=== PATIENT | female | born 1975 | race Caucasian/White ===

== ENCOUNTER → 2016-11-11 | Outpatient (CLI) | payer BC ==
--- NOTE | 2016-11-11 11:52 | WWHP ---
DATE OF SERVICE: 11/11/2016 CHIEF COMPLAINT: The patient is here for her routine gynecologic exam. HPI: This is a 41-year-old G2, P2 with an LMP of 10/21/16. She is status post tubal ligation. She states her periods are regular. She has noticed a slight vaginal discharge, which seems to be just before her period. She thinks she may have noticed it at other times as well. She denies itching or odor. PAST MEDICAL HISTORY: Chronic back pain. MEDICATIONS: Tramadol one p.o. b.i.d. ALLERGIES: No known drug allergies. PAST SURGICAL HISTORY: Tubal ligation in 1998, tonsillectomy 2000, laparoscopic cholecystectomy in 2015. 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 SOCIAL HISTORY: She denies tobacco and drug use and has 0 to 2 alcoholic drinks per week. She is currently not seeing anybody at this time and is not sexually active. She has had 2 sexual partners over the past 2 years. 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 FAMILY HISTORY: Unchanged from the 2014 H&P. REVIEW OF SYSTEMS: She has gained about 5 pounds over the last 2 years. She denies respiratory, cardiac, or GI problems. PHYSICAL EXAM: Blood pressure 109/60. Height 5 feet 7 inches. Weight 212 pounds. Temperature 98.0, pulse 77. This is a well-developed, well-nourished white female who is alert and oriented x3 in no acute distress. HEENT is within normal limits. NECK: Supple without mass or thyromegaly. CHEST AND LUNGS: Clear to auscultation. HEART: Regular rate and rhythm. Breasts are without mass or discharge. There is a benign appearing 6mm mole on the upper aspect of the left breast. Axillary exam is negative for adenopathy. BACK: Negative for CVA tenderness. ABDOMEN: Soft, nontender, without palpable masses. PELVIC EXAM: Normal external genitalia. Cervix and vagina appear normal. There is no unusual discharge. The uterus is midposition, nongravid size and nontender. There are no palpable adnexal masses or tenderness. There is no cervical motion tenderness. The rectal exam was refused by the patient. EXTREMITIES: Nontender. IMPRESSION: 1. A 41-year-old female, status post tubal ligation with normal gynecologic exam. 2. Intermittent vaginal discharge noticed by the patient, which has been mostly premenstrual. There are no significant physical findings at this time and no evidence of vaginitis on exam. PLAN: 1. Pap smear was performed. 2. Self breast examination was discussed. 3. Mammogram will be done today. 4. GC and Chlamydia screening from the cervix was obtained. 5. STD prevention was discussed including the importance of limiting sexual partners and use of condoms for STD prevention. 6. She will return in one year. GABE
--- NOTE | 2016-11-16 11:06 | MM ---
Reason for exam: screening (asymptomatic). Last mammogram was performed 2 years and 5 months ago. History: Family history of breast cancer in maternal aunt at age 60 and breast cancer in maternal cousin at age 40. Took hormonal contraceptives for 2 months. Physical Findings: A clinical breast exam by your physician is recommended on an annual basis and results should be correlated with mammographic findings. MG Screening Mammo w CAD Bilateral CC and MLO view(s) were taken. Prior study comparison: June 20, 2014, bilateral MG screening mammo w CAD. The breast tissue is heterogeneously dense. This may lower the sensitivity of mammography. There is no discrete abnormality. No significant changes when compared with prior studies. ASSESSMENT: Negative, BI-RAD 1 RECOMMENDATION: Routine screening mammogram of both breasts in 1 year.
--- NOTE | 2016-11-25 09:48 | WWPLE ---
November 24, 2016 DENO BURNS MD RE: Lynda Katie Kylah Dear Dr. Burns. I had the pleasure of seeing your patient Katie Howell in the office on 11/11/16. As you know she is a 41-year-old female who presented to me for her routine gynecologic exam. The gynecologic exam was unremarkable. Pap smear, mammogram and GC and Chlamydia screening were all negative. Thank you for allowing me to participate in the care of your patient. Please do not hesitate to call if you have any questions. Sincerely, NEELAM NATIOND
== END | disposition home or self-care (01) ==
LOC: WWCWWP 10:34
PROVIDERS: ATTEND Obstetrics & Gynecology
DX: Z12.31 Encounter for screening mammogram for malignant neoplasm of breast (principal)
CPT/HCPCS: 87591; 87491; G0202

== ENCOUNTER 2017-08-28 17:51 | Emergency (ER) | payer BC ==
[2017-08-28 17:55] VITALS: TEMP 98.1
[2017-08-28] MEDS ORDERED: KETOROLAC 60 MG/2 ML VIAL IM STA (18:38)
--- NOTE | 2017-08-28 18:47 | ED ---
General Adult HPI - General Chief complaint: Abdominal Pain Stated complaint: Abdominal pain Time Seen by Provider: 08/28/17 18:00 Source: patient, RN notes reviewed Mode of arrival: ambulatory Limitations: no limitations - History of Present Illness Initial comments: This is a 41-year-old female who presents emergency Department complaining of posterior leg pain bilaterally. Patient states started earlier today and when she sits up it's worse when she walks she doesn't have it all. Patient states she does have some chronic lower back problems. Patient denies any injury patient denies any exercise patient denies doing anything differently. Patient states she got up this morning was very stiff felt like he was pulling. Patient states she does have frequency of urination but she has not had any dysuria or hematuria. Patient denies any back pain. Patient denies any abdominal pain patient denies nausea vomiting diarrhea. Patient states the pain starts in her hips radiates down to her knees - Related Data Home Medications Medication Instructions Recorded Confirmed Acetaminophen-Codeine 300-30mg 1 tab PO ONCE 08/28/17 08/28/17 [Tylenol #3] Dextroamphetamine/Amphetamine 20 mg PO TID 08/28/17 08/28/17 [Adderall] Ibuprofen [Motrin] 400 mg PO Q6HR PRN 08/28/17 08/28/17 traMADol HCL [Ultram] 100 mg PO BID PRN 08/28/17 08/28/17 Allergies Allergy/AdvReac Type Severity Reaction Status Date / Time No Known Allergies Allergy Verified 08/28/17 18:49 Review of Systems ROS Statement: Those systems with pertinent positive or pertinent negative responses have been documented in the HPI. ROS Other: All systems not noted in ROS Statement are negative. Past Medical History Additional Past Medical History / Comment(s): chronic back pain History of Any Multi-Drug Resistant Organisms: None Reported Past Surgical History: Cholecystectomy, Tonsillectomy, Tubal Ligation Past Psychological History: ADD/ADHD Smoking Status: Never smoker Past Alcohol Use History: None Reported Past Drug Use History: None Reported General Exam - General Exam Comments Initial Comments: GENERAL: Patient is well-developed and well-nourished. Patient is nontoxic and well- hydrated and is in mild distress. ENT: Neck is soft and supple. No significant lymphadenopathy is noted. Oropharynx is clear. Moist mucous membranes. Neck has full range of motion without eliciting any pain. EYES: The sclera were anicteric and conjunctiva were pink and moist. Extraocular movements were intact and pupils were equal round and reactive to light. Eyelids were unremarkable. PULMONARY: Unlabored respirations. Good breath sounds bilaterally. No audible rales rhonchi or wheezing was noted. CARDIOVASCULAR: There is a regular rate and rhythm without any murmurs gallops or rubs. ABDOMEN: Soft and nontender with normal bowel sounds. No palpable organomegaly was noted. There is no palpable pulsatile mass. SKIN: Skin is clear with no lesions or rashes and otherwise unremarkable. NEUROLOGIC: Patient is alert and oriented x3. Cranial nerves II through XII are grossly intact. Motor and sensory are also intact. Normal speech, volume and content. Symmetrical smile. Straight leg test is negative bilaterally. Her knee exam exam is normal MUSCULOSKELETAL: Normal extremities with adequate strength and full range of motion. LYMPHATICS: No significant lymphadenopathy is noted PSYCHIATRIC: Normal psychiatric evaluation. Limitations: no limitations Course Vital Signs 08/28/17 08/28/17 17:53 19:09 Temperature 98.1 F Pulse Rate 90 69 Respiratory 20 18 Rate Blood Pressure 131/73 126/55 O2 Sat by Pulse 100 97 Oximetry Medical Decision Making - Medical Decision Making Lumbosacral spine x-ray looks normal. Patient's pain was completely gone after the Toradol shot. - Lab Data Lab Results 08/28/17 08/28/17 Range/Units 18:35 18:35 Urine Color Yellow Urine Appearance Cloudy H (Clear) Urine pH 6.0 (5.0-8.0) Ur Specific [place] 1.017 (1.001-1.035) Urine Protein Negative (Negative) Urine Glucose (UA) Negative (Negative) Urine Ketones Negative (Negative) Urine Blood Negative (Negative) Urine Nitrite Negative (Negative) Urine Bilirubin Negative (Negative) Urine Urobilinogen <2.0 (<2.0) mg/dL Ur Leukocyte Esterase Negative (Negative) Urine RBC 2 (0-5) /hpf Urine WBC 2 (0-5) /hpf Ur Squamous Epith Cells 12 H (0-4) /hpf Amorphous Sediment Few H (None) /hpf Urine Bacteria Rare H (None) /hpf Hyaline Casts 1 (0-2) /lpf Urine Mucus Occasional H (None) /hpf Urine HCG, Qual Not Detected (Not Detectd) Disposition Clinical Impression: Hamstring strain Disposition: HOME SELF-CARE Condition: Good Instructions: Muscle Strain (ED) Additional Instructions: Patient should take Motrin 600 mg every 6 hours Referrals: Oly Burns MD [Primary Care Provider] - 1-2 days Time of Disposition: 20:21
[2017-08-28 19:00] LABS: Amorphous Sediment,Urine Few /hpf; Appearance,Urine Cloudy (Clear); Bacteria,Urine Rare /hpf; Bilirubin,Urine Negative (Negative); Blood,Urine Negative (Negative); Color,Urine Yellow; Glucose,Urine (UA) Negative (Negative); Hyaline Casts,Urine 1 /lpf (0-2); Ketones,Urine Negative (Negative); Leukocyte Esterase,Urine Negative (Negative); Mucus,Urine Occasional /hpf; Nitrite,Urine Negative (Negative); Protein,Urine Negative (Negative); RBC,Urine 2 /hpf (0-5); Specific Gravity,Urine 1.017 (1.001-1.035); Squamous Epithelial Cell,Urine 12 /hpf (0-4); Urobilinogen,Urine <2.0 mg/dL (<2.0); WBC,Urine 2 /hpf (0-5)
--- NOTE | 2017-08-28 19:38 | XR ---
EXAMINATION TYPE: XR lumbar spine 2 or 3V DATE OF EXAM: 08/28/2017 CLINICAL HISTORY: Back pain for 2 days. TECHNIQUE: Frontal, lateral, and oblique images of the lumbar spine are obtained. COMPARISON: None FINDINGS: There are 6 nonrib-bearing lumbar-type vertebral bodies. Mild endplate spurring is noted an teriorly. The lumbar spine shows satisfactory alignment without evidence of acute fracture or disloca tion. Vertebral body heights and disk space heights are within normal limits. The oblique images ap pear within normal limits. The overlying soft tissue appears unremarkable. IMPRESSION: No acute fracture or dislocation is seen in the lumbar spine.
[2017-08-28 20:28] VITALS: BP 118/76; PULSE 74; RESP 17
== END 2017-08-28 20:28 | disposition home or self-care (01) ==
LOC: EC 17:51
DX: S76.312A Strain of muscle, fascia and tendon of the posterior muscle group at thigh level, left thigh, initial encounter (principal); S76.311A Strain of muscle, fascia and tendon of the posterior muscle group at thigh level, right thigh, initial encounter; M54.5 Low back pain; G89.29 Other chronic pain; R35.0 Frequency of micturition; F90.9 Attention-deficit hyperactivity disorder, unspecified type; Z90.49 Acquired absence of other specified parts of digestive tract; Z98.51 Tubal ligation status; Z79.891 Long term (current) use of opiate analgesic; Z79.899 Other long term (current) drug therapy
CPT/HCPCS: 81001; 81025; 72100; 99284; 96372; J1885

== ENCOUNTER 2019-08-06 09:08 | Emergency (ER) | payer BC ==
[2019-08-06 09:28] VITALS: BP 136/75; PULSE 85; RESP 18; TEMP 97.9
[2019-08-06] MEDS ORDERED: FAMOTIDINE 20 MG TAB PO STA (09:59)
[2019-08-06] MEDS ORDERED: diphenhydrAMINE 50 MG CAP PO STA (09:59)
[2019-08-06] MEDS ORDERED: predniSONE 20 MG TAB PO STA (09:59)
--- NOTE | 2019-08-06 10:03 | ED ---
Allergic Reaction HPI - General Chief complaint: Allergic Reaction Stated complaint: Allergic reaction Time Seen by Provider: 08/06/19 09:35 Source: patient, RN notes reviewed Mode of arrival: ambulatory Limitations: no limitations - History of Present Illness Initial Comments: This a 43-year-old female presents emergency from chief complaint ALLERGIC r eaction. Patient states she's had on-and-off urticaria since July 18. Patient was treated by urgent care with steroids she states last few days she's been well with states that she had work again this morning nor slight rash, some facial swelling which she took 2 Claritin symptoms are improving she's noted to the swelling no difficulty breathing. Symptoms started several hours ago. Patient states that initially about is from a new any motion but states that she has not used in several weeks and she still have recurrent symptoms. She states her PCP told her that she could've symptoms for 6 weeks. Patient denies any new prescription medications known drug ALLERGIES. She has an appointment tomorrow for ALLERGY testing. - Related Data Home Medications Medication Instructions Recorded Confirmed Acetaminophen-Codeine 300-30mg 1 tab PO ONCE 08/28/17 08/28/17 [Tylenol #3] Dextroamphetamine/Amphetamine 20 mg PO TID 08/28/17 08/28/17 [Adderall] Ibuprofen [Motrin] 400 mg PO Q6HR PRN 08/28/17 08/28/17 traMADol HCL [Ultram] 100 mg PO BID PRN 08/28/17 08/28/17 Allergies Allergy/AdvReac Type Severity Reaction Status Date / Time No Known Allergies Allergy Verified 08/06/19 09:28 Review of Systems ROS Statement: Those systems with pertinent positive or pertinent negative responses have been documented in the HPI. ROS Other: All systems not noted in ROS Statement are negative. Past Medical History Additional Past Medical History / Comment(s): chronic back pain History of Any Multi-Drug Resistant Organisms: None Reported Past Surgical History: Cholecystectomy, Tonsillectomy, Tubal Ligation Past Psychological History: ADD/ADHD Smoking Status: Never smoker Past Alcohol Use History: None Reported Past Drug Use History: None Reported General Exam Limitations: no limitations General appearance: alert, in no apparent distress Head exam: Present: atraumatic, normocephalic, normal inspection Eye exam: Present: normal appearance, PERRL, EOMI. Absent: scleral icterus, conjunctival injection, periorbital swelling ENT exam: Present: normal oropharynx, mucous membranes moist, TM's normal bilaterally. Absent: normal exam (Mild swelling noted) Neck exam: Present: normal inspection, full ROM. Absent: tenderness, meningismus, lymphadenopathy Respiratory exam: Present: normal lung sounds bilaterally. Absent: respiratory distress, wheezes, rales, rhonchi, stridor Cardiovascular Exam: Present: regular rate, normal rhythm, normal heart sounds. Absent: systolic murmur, diastolic murmur, rubs, gallop, clicks Neurological exam: Present: alert, oriented X3, CN II-XII intact Skin exam: Present: warm, dry, intact, normal color. Absent: rash Course Vital Signs 08/06/19 09:26 Temperature 97.9 F Pulse Rate 85 Respiratory 18 Rate Blood Pressure 136/75 O2 Sat by Pulse 99 Oximetry Medical Decision Making - Medical Decision Making Patient's had improvement prior arrival after Claritin. Patient will be discharged after oral Benadryl Pepcid and prednisone. She has an appointment tomorrow with dermatology for ALLERGY testing. Disposition Clinical Impression: Chronic urticaria, Allergic reaction Disposition: HOME SELF-CARE Condition: Stable Instructions (If sedation given, give patient instructions): Urticaria (ED) Additional Instructions: Please return to the Emergency Department if symptoms worsen or any other concerns. Is patient prescribed a controlled substance at d/c from ED?: No Referrals: Oly Burns MD [Primary Care Provider] - 1-2 days Time of Disposition: 10:03
== END 2019-08-06 10:12 | disposition home or self-care (01) ==
LOC: EC 09:08
DX: L50.0 Allergic urticaria (principal); G89.29 Other chronic pain; F90.9 Attention-deficit hyperactivity disorder, unspecified type; Z79.891 Long term (current) use of opiate analgesic; Z79.899 Other long term (current) drug therapy
CPT/HCPCS: 99283; J7512

== ENCOUNTER → 2019-11-16 | Outpatient (CLI) | payer BC ==
[2019-11-16 11:43] LABS: Basophils % (A) 0 %; Eosinophils # (A) 0.1 k/uL (0-0.7); Eosinophils % (A) 0 %; HCT 41.6 % (34.0-46.0); HGB 12.6 gm/dL (11.4-16.0); Hypochromasia Moderate; Lymphocytes # (A) 2.5 k/uL (1.0-4.8); Lymphocytes % (A) 12 %; MCH 24.3 pg (25.0-35.0); MCHC 30.3 g/dL (31.0-37.0); MCV 80.4 fL (80.0-100.0); Mean Platelet Volume 6.6; Monocytes # (A) 0.6 k/uL (0-1.0); Monocytes % (A) 3 %; Neutrophils # (A) 17.9 k/uL (1.3-7.7); Neutrophils % (A) 84 %; Platelet Count 387 k/uL (150-450); RBC 5.17 m/uL (3.80-5.40); RDW 13.8 % (11.5-15.5); WBC 21.3 k/uL (3.8-10.6)
[2019-11-17 11:57] LABS: Alt. alternata IgE Class CLASS 0; Alternaria alternata IgE <0.10 kU/L (<0.10); Asperg. fumagatus IgE <0.10 kU/L (<0.10); Asperg. fumagatus IgE Class CLASS 0; Bermuda Grass IgE <0.10 kU/L (<0.10); Birch(Com.Silvr) IgE <0.10 kU/L (<0.10); Birch(Com.Silvr) IgE Class CLASS 0; Cat Epith & Dander IgE <0.10 kU/L (<0.10); Cat Epith & Dander IgE Class CLASS 0; Clad herbarum IgE <0.10 kU/L (<0.10); Clad herbarum IgE Class CLASS 0; Cockroach IgE <0.10 kU/L (<0.10); Cottonwood IgE <0.10 kU/L (<0.10); Cow's Milk IgE Class CLASS 0; Dermato. Pteronyssinus Class CLASS 0; Dermato. Pteronyssinus IgE <0.10 kU/L (<0.10); Dermato. farinae IgE <0.10 kU/L (<0.10); Dermato. farinae IgE Class CLASS 0; Dog Dander IgE <0.10 kU/L (<0.10); Egg White IgE <0.10 kU/L (<0.10); Elm IgE <0.10 kU/L (<0.10); IgE (Allergen) <2.0 IU/mL (<114.0); Maple (Box Elder) IgE <0.10 kU/L (<0.10); Maple (Box Elder) IgE Class CLASS 0; Mountain Cedar IgE <0.10 kU/L (<0.10); Mountain Cedar IgE Class CLASS 0; Mouse Urine IgE Class CLASS 0; Mouse Urine Proteins,IgE <0.10 kU/L (<0.10); Nettle IgE <0.10 kU/L (<0.10); Nettle IgE Class CLASS 0; Oak IgE <0.10 kU/L (<0.10); Peanut IgE <0.10 kU/L (<0.10); Penicillium chrysogenum IgE <0.10 kU/L (<0.10); Penicillium chrysogenum IgE Cl CLASS 0; Potato IgE <0.10 kU/L (<0.10); Potato IgE Class CLASS 0; Rough Marshelder IgE <0.10 kU/L (<0.10); Rough Marshelder IgE Class CLASS 0; Soybean IgE <0.10 kU/L (<0.10); Timothy Grass IgE <0.10 kU/L (<0.10); Timothy Grass IgE Class CLASS 0; White Ash IgE Class CLASS 0
== END | disposition home or self-care (01) ==
LOC: LABWHC1 11:00
PROVIDERS: ATTEND Otolaryngology
DX: T78.3XXA Angioneurotic edema, initial encounter (principal)
CPT/HCPCS: 36415; 82785; 85025; 86003

== ENCOUNTER 2019-11-18 11:23 | Emergency (ER) | payer BC ==
[2019-11-18 11:29] VITALS: RESP 18; TEMP 98.5
--- NOTE | 2019-11-18 12:12 | ED ---
General Adult HPI - General Chief complaint: Allergic Reaction Stated complaint: hives Time Seen by Provider: 11/18/19 11:35 Source: patient, RN notes reviewed Mode of arrival: ambulatory Limitations: no limitations - History of Present Illness Initial comments: 44-year-old female presents to the emergency department for a chief complaint of rash and swelling. Patient states she has had hives and random swelling for 5 months now. States that she has been on 3 different doses of steroids and these all seem to help. Since that she has been taking Benadryl as well. Patient states that yesterday her doctor ordered blood work on her and was found to have an elevated white blood cell count of 21. She did just finish steroids 2 days ago. Patient states she had some swelling in her eyes today which she has had several times before so called her doctor and he said to go to the emergency department given her leukocytosis. Patient is not having any swelling of the lips tongue or throat. She is not having any shortness of breath or chest pain. No difficulty swallowing or breathing. She states she has an appointment with an rn clinician next week. She states that she is only here today because her doctor told her to come. Patient has no other complaints at this time including shortness of breath, chest pain, abdominal pain, nausea or vomiting, headache, or visual changes. - Related Data Home Medications Medication Instructions Recorded Confirmed Dextroamphetamine/Amphetamine 10 mg PO BID 08/28/17 11/18/19 [Adderall] Cetirizine HCl [Zyrtec] 10 mg PO DAILY 11/18/19 11/18/19 Levothyroxine Sodium [Synthroid] 25 mcg PO DAILY 11/18/19 11/18/19 diphenhydrAMINE HCL [Benadryl] 25 - 50 mg PO Q4H PRN 11/18/19 11/18/19 Previous Rx's Medication Instructions Recorded Famotidine [Pepcid] 20 mg PO BID #30 tablet 11/18/19 Triamcinolone 0.1% Cream [Kenalog 1 applic TOPICAL TID PRN #30 g 11/18/19 0.1% Cream] predniSONE 50 mg PO DAILY #5 tablet 11/18/19 Allergies Allergy/AdvReac Type Severity Reaction Status Date / Time No Known Allergies Allergy Verified 11/18/19 11:59 Review of Systems ROS Statement: Those systems with pertinent positive or pertinent negative responses have been documented in the HPI. ROS Other: All systems not noted in ROS Statement are negative. Past Medical History Additional Past Medical History / Comment(s): chronic back pain History of Any Multi-Drug Resistant Organisms: None Reported Past Surgical History: Cholecystectomy, Tonsillectomy, Tubal Ligation Past Psychological History: ADD/ADHD Smoking Status: Never smoker Past Alcohol Use History: None Reported Past Drug Use History: None Reported General Exam Limitations: no limitations General appearance: alert, in no apparent distress Head exam: Present: atraumatic, normocephalic, normal inspection Eye exam: Present: normal appearance, PERRL, EOMI. Absent: scleral icterus, conjunctival injection, periorbital swelling ENT exam: Present: normal exam, mucous membranes moist. Absent: normal oropharynx (No swelling of the lips tongue or throat. No evidence of angioedema.), TM's normal bilaterally, normal external ear exam Neck exam: Present: normal inspection, full ROM. Absent: tenderness, meningismu s, lymphadenopathy Respiratory exam: Present: normal lung sounds bilaterally. Absent: respiratory distress, wheezes, rales, rhonchi, stridor Cardiovascular Exam: Present: regular rate, normal rhythm, normal heart sounds. Absent: systolic murmur, diastolic murmur, rubs, gallop, clicks GI/Abdominal exam: Present: soft, normal bowel sounds. Absent: distended, tenderness, guarding, rebound, rigid Skin exam: Present: warm, dry, intact, normal color, urticaria (Patient has mildly erythematous urticaria on arms and legs as well as abdomen and back.) Course Vital Signs 11/18/19 11/18/19 11:27 12:16 Temperature 98.5 F Pulse Rate 102 H 101 H Respiratory 18 18 Rate Blood Pressure 135/100 172/86 O2 Sat by Pulse 99 98 Oximetry Medical Decision Making - Medical Decision Making Patient was technically sent into the emergency department for a leukocytosis however just finished steroids 2 days ago. This is likely reactive. I did recommend that she does need to repeat this lab value when she is off steroids and follow up with her doctor to see if he has any other recommendations for her. Patient does have some mild swelling of the eyelids but otherwise no evidence of angioedema of the lips tongue or throat. She does have generalized urticaria that has been consistent since July. She does not have any swelling of the lips tongue or throat. No shortness of breath or chest pain. Patient was started on a five-day course of steroids and Pepcid to help with her symptoms until she sees her rn clinician next week as steroids helped in the past. She will continue to take Benadryl. She has an appointment with her rn clinician next week.I discussed this case with attending Dr. Anand who agrees with this assessment and treatment plan. Disposition Clinical Impression: Urticaria Disposition: HOME SELF-CARE Condition: Fair Instructions (If sedation given, give patient instructions): General Allergic Reaction (ED) Additional Instructions: Please take medications as directed. Follow-up with your rn clinician as soon as possible. Follow up with primary care so they can repeat your white blood cell count when you are off steroids to make sure it improves or other appropriate management. If you have any swelling of your tongue or throat or difficulty breathing you need to return immediately to the emergency department. Prescriptions: Triamcinolone 0.1% Cream [Kenalog 0.1% Cream] 1 applic TOPICAL TID PRN #30 g PRN Reason: Rash Famotidine [Pepcid] 20 mg PO BID #30 tablet predniSONE 50 mg PO DAILY #5 tablet Is patient prescribed a controlled substance at d/c from ED?: No Referrals: Oly Burns MD [Primary Care Provider] - 1-2 days Time of Disposition: 12:06
[2019-11-18 12:24] VITALS: BP 172/86; PULSE 101
== END 2019-11-18 12:16 | disposition home or self-care (01) ==
LOC: EC 11:23
DX: L50.9 Urticaria, unspecified (principal); H57.89 Other specified disorders of eye and adnexa; Z79.890 Hormone replacement therapy; Z79.899 Other long term (current) drug therapy
CPT/HCPCS: 99283

== ENCOUNTER → 2020-12-06 | Outpatient (CLI) | payer BC | END | disposition home or self-care (01) | LOC: LABWHC1 17:02 | PROVIDERS: ATTEND Emergency Medicine | DX: Z20.822 Contact with and (suspected) exposure to COVID-19 (principal) | CPT/HCPCS: U0003; C9803; U0005 ==

== ENCOUNTER → 2020-12-24 | Outpatient (CLI) | payer BC | END | disposition home or self-care (01) | LOC: LABWHC1 16:38 | PROVIDERS: ATTEND Emergency Medicine | DX: Z20.822 Contact with and (suspected) exposure to COVID-19 (principal) | CPT/HCPCS: U0003; C9803 ==

== ENCOUNTER → 2021-10-07 | Outpatient (CLI) | payer BC ==
[2021-10-07 15:26] VITALS: BP 114/85; PULSE 88; TEMP 98
--- NOTE | 2021-10-07 16:23 | P.HPBAR ---
Bariatric H&P - History & Physicial H&P Date: 10/07/21 History & Physicial: Visit/CC: initial clinic visit Patient initial contact: Initial weight: Initial weight in pounds: Height: 5 ft 8 in Initial BMI: Last weight: Current weight: 104.326 kg Current weight in pounds: 230.00 Current BMI: 34.9 [place] body weight (based on NIH guidelines): 63.503 kg Excess body weight loss: The patient is a 45 year-old F who presents for Bariatric Assessment. Patient presents interested in bariatric surgery. States she is more interested in the sleeve gastrectomy currently. Patient has a friend that went through the sleeve gastrectomy procedure in the past. Patient says she has tried a variety of different weight loss methods without success. Patient suffers from right chronic right knee pain, possible sleep apnea, rare heartburn symptoms. Patient's only other medical issue is hypothyroidism. Surgical history includes laparoscopic cholecystectomy, tubal ligation, tonsils. No tobacco use. No history of DVT or dysphagia. No prior EGD. Review of Systems The patient denies any acute changes in vision or hearing, no dysphagia or odynophagia, no chest pain or shortness of breath, no dysuria or hematuria, no headache, no runny nose, no rectal bleeding or melena, no unexplained weight loss Past Medical History Additional Past Medical History / Comment(s): chronic back pain History of Any Multi-Drug Resistant Organisms: None Reported Past Surgical History: Cholecystectomy, Tonsillectomy, Tubal Ligation Past Psychological History: ADD/ADHD Smoking Status: Never smoker Past Alcohol Use History: None Reported Past Drug Use History: None Reported Surgical - Exam Vital Signs Temp Pulse BP 98 F 88 114/85 10/07/21 15:16 10/07/21 15:16 10/07/21 15:16 Physical exam: General: Well-developed, well-nourished HEENT: Normocephalic, sclerae nonicteric Abdomen: Nontender, nondistended Extremities: No edema Neuro: Alert and oriented Bariatric Assessment & Plan (1) Obesity (BMI 30.0-34.9) Narrative/Plan: 45-year-old female with obesity. Patient has clinical history worrisome for sleep apnea. Patient's body mass index is borderline for meeting criteria for sleeve gastrectomy. This was discussed with the patient. We'll order sleep apnea study at this time given the patient's clinical history. If the patient's BMI is over 35.0 and suspected comorbidities are confirmed Will proceed with upper endoscopy as part of our preoperative workup for sleeve gastrectomy. The risks and benefits of both sleeve gastrectomy and gastric bypass reviewed in detail. Patient remains interested in sleeve gastrectomy at this time. Status: Acute Bariatric Checklist Checklist: Plan: Checklist: EGD: 1. Hiatal hernia: 2. H. Pylori: HgbA1c: Vitamin D: Smoking: Never smoker Primary care physician referral: Psychiatry clearance: Cardiology clearance: Sleep study: Diet journal: VTE risk score: VTE risk level: Rehab needs at discharge:
[2021-10-08 01:53] LABS: HCT 41.8 % (37.2-46.3); HGB 12.4 g/dL (12.0-15.0); MCH 23.5 pg (27.0-32.0); MCHC 29.7 g/dL (32.0-37.0); MCV 79.2 fL (80.0-97.0); Mean Platelet Volume 9.7 fL (9.5-12.2); NRBC Per 100 WBC 0 /100 WBCS (0.0-0.0); Platelet Count 297 X 10*3/uL (140-440); RBC 5.28 X 10*6/uL (4.10-5.20); WBC 10.03 X 10*3/uL (4.50-10.00)
[2021-10-08 03:02] LABS: Folate, Serum 10.4 ng/mL (4.40-31.00)
[2021-10-08 03:18] LABS: African American GFR (CKD) 103.2 (60.0-200.0); Albumin 4.7 g/dL (3.8-4.9); Albumin/Globulin Ratio 1.88 (1.60-3.17); Anion Gap 16.4 mmol/L (10.00-18.00); BUN/Creat Ratio 12.38 Ratio (12.00-20.00); Blood Urea Nitrogen 9.9 mg/dL (9.0-27.0); Calcium 9.2 mg/dL (8.7-10.3); Carbon Dioxide 18.6 mmol/L (20.0-27.5); Globulin 2.5 g/dL (1.6-3.3); Potassium 4.2 mmol/L (3.5-5.5); Total Bilirubin 0.4 mg/dL (0.30-1.20); Total Protein 7.2 g/dL (6.2-8.2)
[2021-10-08 09:21] VITALS: BMI 35.4
[2021-10-09 11:15] LABS: Anabasine Urine <2.0 ng/mL (<2.0)
== END ==
LOC: BARWHC3 14:55
PROVIDERS: ATTEND Surgery
DX: E66.9 Obesity, unspecified (principal); Z71.51 Drug abuse counseling and surveillance of drug abuser; K90.89 Other intestinal malabsorption; E55.9 Vitamin D deficiency, unspecified; G47.30 Sleep apnea, unspecified; Z68.34 Body mass index [BMI] 34.0-34.9, adult; E03.9 Hypothyroidism, unspecified; F90.9 Attention-deficit hyperactivity disorder, unspecified type
CPT/HCPCS: 36415; 80053; 80323; 82306; 82607; 82746; 83036; 83540; 84425; 85027; 93005; 99211

== ENCOUNTER 2021-11-04 10:45 | Day surgery (SDC) | payer BC ==
[2021-10-30 15:30] VITALS: BMI 36.2
[~2021-11-04 10:45] MED LIST: LACTATED RINGERS 1,000 ML IV SCH; LIDOCAINE 1% (10MG/ML) FOR IV START INTRADERMA PRN
[2021-11-04] MEDS ORDERED: PROPOFOL 10 MG/ML 20 ML VIAL IV ONE (11:21)
[2021-11-04] MEDS ORDERED: LIDOCAINE 1% INJ 10MG/ML (20 ML MDV) ONE (11:21)
[2021-11-04 11:24] VITALS: RESP 20; TEMP 97
--- NOTE | 2021-11-04 11:26 | P.GSHP ---
History of Present Illness H&P Date: 11/04/21 Chief Complaint: GERD 46-year-old female here today for upper endoscopy. She was recently seen in the bariatric clinic. Patient is interested in weight loss surgery. Mild reflux symptoms. Past Medical History Past Medical History: Thyroid Disorder Additional Past Medical History / Comment(s): chronic back pain History of Any Multi-Drug Resistant Organisms: None Reported Past Surgical History: Cholecystectomy, Tonsillectomy, Tubal Ligation Past Anesthesia/Blood Transfusion Reactions: No Reported Reaction Past Psychological History: No Psychological Hx Reported Smoking Status: Never smoker Past Alcohol Use History: None Reported Past Drug Use History: None Reported - Past Family History Mother Family Medical History: No Reported History Medications and Allergies Home Medications Medication Instructions Recorded Confirmed Type Levothyroxine Sodium [Synthroid] 25 mcg PO DAILY 11/18/19 10/30/21 History Cholecalciferol [Vitamin D3 (125 125 mcg PO DAILY 10/30/21 10/30/21 History Mcg = 5000 Iu)] Ferrous Sulfate [Feosol] 325 mg PO DAILY 10/30/21 10/30/21 History Multivit with Calcium,Iron,Min 1 each PO DAILY 10/30/21 10/30/21 History [Women's Multivitamin] Vitamin E 400 unit PO DAILY 10/30/21 10/30/21 History Allergies Allergy/AdvReac Type Severity Reaction Status Date / Time No Known Allergies Allergy Verified 10/30/21 15:23 Surgical - Exam Vital Signs Temp Pulse Resp BP Pulse Ox 97 F L 72 20 118/81 98 11/04/21 11:20 11/04/21 11:20 11/04/21 11:20 11/04/21 11:20 11/04/21 11:20 Physical exam: General: Well-developed, well-nourished HEENT: Normocephalic, sclerae nonicteric Abdomen: Nontender, nondistended Extremities: No edema Neuro: Alert and oriented Assessment and Plan (1) GERD (gastroesophageal reflux disease) Narrative/Plan: Will proceed with upper endoscopy. Current Visit: Yes Status: Acute Code(s): K21.9 - GASTRO-ESOPHAGEAL REFLUX DISEASE WITHOUT ESOPHAGITIS SNOMED Code(s): 750559848
--- NOTE | 2021-11-04 11:32 | P.PCN ---
Date of Procedure: 11/04/21 Procedure(s) Performed: Preoperative Dx: GERD, presurgical Postoperative Dx: Mild gastritis Procedure: EGD with Bx Anesthesia: Sedation Endoscopist: Dr. Thomas Specimens: Antrum Endoscopic Procedure: The patient was on the endoscopy table in the left decubitus position. The Olympus gastroscope was inserted into the oropharynx and passed under direct visualization to the region of the third portion of the duodenum. From that point the scope was slowly withdrawn inspecting all surfaces carefully. There were no neoplastic inflammatory or polypoid lesions throughout the duodenum. The pylorus was widely patent. The stomach was carefully inspected. There was mild gastritis present. A biopsy of the antrum took place to rule out H. pylori. Retroflexion revealed a normal hiatus. The esophagus was then carefully examined. There were no neoplastic inflammatory or polypoid lesions throughout the visualized esophagus. The patient was then taken to the recovery room in stable condition per anesthesia guidelines. Recommendations: Resume diet. Await biopsy results. Follow-up bariatric center.
[2021-11-04 12:16] VITALS: BP 128/68; PULSE 70
== END 2021-11-04 12:28 | disposition home or self-care (01) ==
LOC: ORWHC2ENDO 10:45
PROVIDERS: ATTEND Surgery
DX: K21.9 Gastro-esophageal reflux disease without esophagitis (principal); K29.50 Unspecified chronic gastritis without bleeding; E07.9 Disorder of thyroid, unspecified; G89.29 Other chronic pain; M54.9 Dorsalgia, unspecified; Z90.49 Acquired absence of other specified parts of digestive tract; Z98.51 Tubal ligation status; Z98.890 Other specified postprocedural states; Z79.890 Hormone replacement therapy; Z79.899 Other long term (current) drug therapy
CPT/HCPCS: 81025; 88305; 88342; 43239; J2001; J2704

== ENCOUNTER → 2021-12-09 | Outpatient (CLI) | payer BC ==
[2021-12-09 15:49] VITALS: BP 148/67; PULSE 86; RESP 16; TEMP 98; BMI 37.8
--- NOTE | 2021-12-09 17:43 | P.BASOAP ---
Subjective Progress Note Date: 12/09/21 Principal diagnosis: Morbid obesity Patient returns after recent EGD on 11/04. Patient had mild gastritis. Biopsies did show H. pylori. She has her consultation to discuss sleep study on . Mild reflux symptoms at times. Otherwise no change in her recent history. She has started her treatment course for H. pylori. Objective - Vital Signs Vital signs: Vital Signs Temp 98 F 12/09/21 15:46 Pulse 86 12/09/21 15:46 Resp 16 12/09/21 15:46 BP 148/67 12/09/21 15:46 Pulse Ox Intake & Output 12/08/21 12/09/21 12/09/21 18:59 06:59 18:59 Weight 111.13 kg - Exam Abdomen: Soft, nontender, nondistended Assessment/Plan (1) Obesity (BMI 30.0-34.9) Narrative/Plan: 46-year-old female remains interested in sleeve gastrectomy. We'll finish course of antibiotics for H. pylori. Surgical consent form discussed in detail. All questions answered. Will tentatively schedule repeat H. pylori breath test in 4-6 weeks and if negative will schedule sleeve gastrectomy surgery following that. Plan: Date: 12/09/21 Initial Weight: 104.326 kg Initial BMI: 35.4 Current Weight: 111.13 kg Current BMI: 37.8 Type of Surgery: Total Volume in Band: Previous Volume: Volume Removed: Volume Added: Band Size:
== END ==
LOC: BARWHC3 15:00
PROVIDERS: ATTEND Surgery
DX: E66.01 Morbid (severe) obesity due to excess calories (principal); K29.70 Gastritis, unspecified, without bleeding; B96.81 Helicobacter pylori [H. pylori] as the cause of diseases classified elsewhere; Z68.37 Body mass index [BMI] 37.0-37.9, adult
CPT/HCPCS: 99211

== ENCOUNTER → 2021-12-11 | Outpatient (CLI) | payer BC ==
--- NOTE | 2021-12-11 15:17 | CONS ---
CONSULTATION DATE OF SERVICE: 12/11/2021 This 46-year-old lady has been evaluated in Sleep Center for possible obstructive sleep apnea-hypopnea syndrome. HISTORY OF PRESENT ILLNESS/SLEEP-WAKE EVALUATION: Patient's usual sleep schedule on weekdays is from 11 p.m. to 5 a.m. and on weekends from 11 p.m. to 10 or 11 a.m. No problems with falling asleep, although she has a TV set in the bedroom. Patient usually sleeps on the side position. She snores and wakes up from sleep at least 4 times with several episodes of nocturia. Positive history of restless leg symptoms and sleeptalking. No history of hypnagogic hallucinations, sleep paralysis or cataplexy. In the morning the patient wakes up tired, has difficulties paying attention. Conway Sleepiness Scale increased to 10. Usually she does not take any naps. She drinks 1 or 2 caffeinated beverages during the day. The patient is preparing for bariatric sleeve surgery. PAST MEDICAL HISTORY: Positive for acid reflux, hypothyroidism, headaches, sinus problems, iron deficiency. PAST SURGICAL HISTORY: Tubal ligation, tonsillectomy, cholecystectomy. MEDICATIONS: 1. Amoxicillin 500 mg twice a day. 2. Omeprazole 20 mg twice a day. 3. Biaxin 500 mg twice a day. 4. Synthroid 25 mg once a day. SOCIAL HISTORY: Negative for smoking. Alcohol consumption very rarely. FAMILY HISTORY: Sinus problems, cancer, insomnia, diabetes. REVIEW OF SYSTEMS: Snoring, multiple awakenings from sleep, sleepiness during the day. No fevers. No double vision. No recent chest pain. No shortness of breath. No abdominal pain. No bleeding episodes. No blood in the urine. No seizure episodes. PHYSICAL EXAMINATION: GENERAL: Pleasant lady without distress. VITAL SIGNS: BP 121/74, HR 80, RR 16, height 5 feet 7-1/4 inches, weight 244.8 pounds, body mass index 37.9, temperature 97.2, oxygen saturation at room air 96%. HEENT: PERRLA, EOMI, evaluation of oropharynx showed tongue protrudes midline. Moderately low position of soft palate; Mallampati III to II. NECK: Supple, no JVD. Thyroid is not palpable. Neck is wide; 16-1/2 inches in circumference. LUNGS: Clear to percussion and to auscultation. Good air exchange. No wheezing or rhonchi. HEART: S1, S2 regular. No murmurs, gallops, or rubs. ABDOMEN: Slightly obese. EXTREMITIES: No clubbing or cyanosis. LABOR CUSTODIAN: Awake, alert, and oriented X3. Cranial nerves 2 to 7 intact. There is no fasciculation or atrophy. noted. No focal deficits observed. IMPRESSION: 1. Snoring, multiple awakenings from sleep, sleepiness, Conway Sleepiness Scale increased to 10, wide neck, 16-1/2 inches in circumference; obstructive sleep apnea- hypopnea syndrome. 2. Obesity. 3. Acid reflux. 4. Hypothyroidism. 5. Episodes of headaches. 6. Restless leg symptoms. 7. History of iron deficiency. 8. Status post tubal ligation. 9. Status post cholecystectomy. 10.Status post tonsillectomy. PLAN: 1. Home sleep apnea test for evaluation of patient's breathing during sleep. 2. Following plan after reviewing results of sleep study. 3. If the sleep study is positive for obstructive sleep apnea-hypopnea syndrome, treatment with CPAP for correction of respiratory abnormalities. 4. Losing weight. 5. No driving if feeling any sleepiness. Thank you very much for referring this patient for consultation. Sincerely, Moisés Whaley MD, PhD, FAASM Diplomat of [place] [employer] Sleep Medicine [employer] of [place] [employer] [facility] Treat[facility] [place] MMODL / IJN: [id number] /
== END ==
LOC: SLEEP 13:54
PROVIDERS: ATTEND Internal Medicine
DX: G47.33 Obstructive sleep apnea (adult) (pediatric) (principal); E66.9 Obesity, unspecified; K21.9 Gastro-esophageal reflux disease without esophagitis; E03.9 Hypothyroidism, unspecified; G25.81 Restless legs syndrome; Z90.49 Acquired absence of other specified parts of digestive tract; Z98.51 Tubal ligation status; Z90.09 Acquired absence of other part of head and neck; Z79.890 Hormone replacement therapy; Z68.37 Body mass index [BMI] 37.0-37.9, adult
CPT/HCPCS: 99211

== ENCOUNTER → 2021-12-22 | Outpatient (CLI) | payer BC ==
[2021-12-22 10:46] VITALS: BMI 37.7
== END | disposition home or self-care (01) ==
LOC: BARWHC3 08:50
PROVIDERS: ATTEND Surgery
DX: E66.01 Morbid (severe) obesity due to excess calories (principal); Z71.3 Dietary counseling and surveillance
CPT/HCPCS: 97804

== ENCOUNTER → 2022-02-11 | Outpatient (CLI) | payer BC ==
[2022-02-11 09:46] VITALS: BP 121/72; PULSE 77; TEMP 98.1; BMI 37.5
== END ==
LOC: BARWHC3 09:26
PROVIDERS: ATTEND Surgery
DX: Z09 Encounter for follow-up examination after completed treatment for conditions other than malignant neoplasm (principal); E66.01 Morbid (severe) obesity due to excess calories; Z68.37 Body mass index [BMI] 37.0-37.9, adult

== ENCOUNTER → 2022-02-18 | Outpatient (CLI) | payer BC, OTHER ==
[2022-02-18 11:15] VITALS: BP 101/63; PULSE 83; TEMP 98.2; BMI 37.0
== END ==
LOC: BARWHC3 11:03
PROVIDERS: ATTEND Surgery
DX: Z09 Encounter for follow-up examination after completed treatment for conditions other than malignant neoplasm (principal); K29.70 Gastritis, unspecified, without bleeding; B96.1 Klebsiella pneumoniae [K. pneumoniae] as the cause of diseases classified elsewhere
CPT/HCPCS: 83013; 99211

== ENCOUNTER → 2022-03-02 | Outpatient (CLI) | payer OTHER ==
[2022-03-02 14:24] LABS: Basophils # (A) 0.02 X 10*3/uL (0.00-0.10); Basophils % (A) 0.3 %; Eosinophils # (A) 0.06 X 10*3/uL (0.04-0.35); Eosinophils % (A) 0.8 %; HCT 43.6 % (37.2-46.3); HGB 13.3 g/dL (12.0-15.0); Immature Grans, Automated 0.4 %; Lymphocytes # (A) 1.88 X 10*3/uL (0.90-5.00); Lymphocytes % (A) 23.9 %; MCH 25.5 pg (27.0-32.0); MCHC 30.5 g/dL (32.0-37.0); MCV 83.7 fL (80.0-97.0); Mean Platelet Volume 9.7 fL (9.5-12.2); Monocytes # (A) 0.69 X 10*3/uL (0.20-1.00); Monocytes % (A) 8.8 %; NRBC Per 100 WBC 0 /100 WBCS (0.0-0.0); Neutrophils # (A) 5.18 X 10*3/uL (1.80-7.70); Neutrophils % (A) 65.8 %; Platelet Count 236 X 10*3/uL (140-440); RBC 5.21 X 10*6/uL (4.10-5.20); RDW 13.2 % (11.5-14.5); WBC 7.86 X 10*3/uL (4.50-10.00)
[2022-03-02 16:19] LABS: African American GFR (CKD) 121.2 (60.0-200.0); Albumin 4.5 g/dL (3.8-4.9); Albumin/Globulin Ratio 1.69 (1.60-3.17); Anion Gap 14.4 mmol/L (10.00-18.00); BUN/Creat Ratio 28.38 Ratio (12.00-20.00); Blood Urea Nitrogen 19.5 mg/dL (9.0-27.0); Calcium 9.4 mg/dL (8.7-10.3); Carbon Dioxide 19.3 mmol/L (20.0-27.5); Globulin 2.7 g/dL (1.6-3.3); Non-African American GFR(CKD) 104.6 (60.0-200.0); Potassium 4.2 mmol/L (3.5-5.5); Total Bilirubin 0.4 mg/dL (0.30-1.20); Total Protein 7.2 g/dL (6.2-8.2)
== END | disposition home or self-care (01) ==
LOC: LABPAT 09:35
PROVIDERS: ATTEND Surgery
DX: Z01.812 Encounter for preprocedural laboratory examination (principal)
CPT/HCPCS: 80053; 85025

== ENCOUNTER 2022-03-09 10:00 | Inpatient (IN) | payer OTHER ==
[~2022-03-09 10:00] MED LIST changes: +DEXAMETHASONE SOD PHOSPHATE 4 MG/ML 1 ML VIAL IV ONE; +ENOXAPARIN 40 MG/0.4 ML SYRINGE SQ PRN; +HYDROmorphone 0.5 MG/0.5 ML SYRINGE IVP PRN; -LACTATED RINGERS 1,000 ML IV SCH; -LIDOCAINE 1% (10MG/ML) FOR IV START INTRADERMA PRN
[2022-03-09 10:28] LABS: Glucose,Whole Blood 79 mg/dL (70-110)
[2022-03-09] MEDS: LACTATED RINGERS 1,000 ML IV SCH (10:31)
[2022-03-09] MEDS: ONDANSETRON 4 MG/2 ML VIAL IVP ONE ×2 (10:33→17:13)
--- NOTE | 2022-03-09 10:54 | P.GSHP ---
History of Present Illness H&P Date: 03/09/22 Chief Complaint: Morbid obesity 46-year-old female here today for sleeve gastrectomy. Patient was first seen for surgical weight loss in September. Patient suffers from chronic knee pain, GERD, sleep apnea. Previous history of laparoscopic cholecystectomy and tubal ligation. No tobacco use. EGD showed mild gastritis however biopsies showed H. pylori positivity. She was treated and then had urea breath test which was negative. Past Medical History Past Medical History: Thyroid Disorder Additional Past Medical History / Comment(s): hx migraines, low iron. History of Any Multi-Drug Resistant Organisms: None Reported Past Surgical History: Cholecystectomy, Tonsillectomy, Tubal Ligation Past Anesthesia/Blood Transfusion Reactions: No Reported Reaction, Motion Sickness Past Psychological History: No Psychological Hx Reported Smoking Status: Never smoker Past Alcohol Use History: None Reported Past Drug Use History: None Reported - Past Family History Mother Family Medical History: No Reported History Medications and Allergies Home Medications Medication Instructions Recorded Confirmed Type Levothyroxine Sodium [Synthroid] 25 mcg PO DAILY 11/18/19 03/05/22 History Cholecalciferol [Vitamin D3 (125 125 mcg PO DAILY 10/30/21 03/09/22 History Mcg = 5000 Iu)] Multivit with Calcium,Iron,Min 1 each PO DAILY 10/30/21 03/09/22 History [Women's Multivitamin] Iron 18 mg PO DAILY 02/11/22 03/09/22 History Allergies Allergy/AdvReac Type Severity Reaction Status Date / Time No Known Allergies Allergy Verified 03/09/22 10:21 Surgical - Exam Vital Signs Temp Pulse Resp BP Pulse Ox 97.7 F 90 18 145/72 97 03/09/22 10:26 03/09/22 10:26 03/09/22 10:26 03/09/22 10:26 03/09/22 10:26 Physical exam: General: Well-developed, well-nourished HEENT: Normocephalic, sclerae nonicteric Abdomen: Nontender, nondistended Extremities: No edema Neuro: Alert and oriented Assessment and Plan (1) Obesity (BMI 30.0-34.9) Narrative/Plan: 46 row female with obesity and associated comorbidities. We'll proceed with laparoscopic da Austyn assisted sleeve gastrectomy, possible open at this time. The risks of bleeding, infection, stenosis, stricture, leak, abscess, fistula formation, peritonitis, poor weight loss, reflux, vomiting, conversion to an open procedure, aborting sleeve gastrectomy, AR, PE, DVT, and were discussed. The patient understands and wishes to proceed. Current Visit: No Status: Acute Code(s): E66.9 - OBESITY, UNSPECIFIED SNOMED Code(s): 951214406662594
[2022-03-09] MEDS ORDERED: SUCCINYLCHOLINE CHLORIDE 200 MG/10 ML VIAL IV ONE (11:13)
[2022-03-09] MEDS ORDERED: MIDAZOLAM 2 MG/2 ML VIAL ONE (11:13)
[2022-03-09] MEDS ORDERED: GLYCOPYRROLATE 0.2 MG/ML 2 ML VIAL ONE (11:13)
[2022-03-09] MEDS ORDERED: fentaNYL (PF) 50 MCG/ML 2 ML AMP ONE (11:13)
[2022-03-09] MEDS ORDERED: HYDROmorphone (PF) 1 MG/ML ONE (11:13)
[2022-03-09] MEDS ORDERED: NEOSTIGMINE 1 MG/ML 10 ML VIAL ONE (11:13)
[2022-03-09] MEDS ORDERED: LIDOCAINE 2% INJ 20 MG/ML (2 ML VIAL) ONE (11:13)
[2022-03-09] MEDS ORDERED: PROPOFOL 10 MG/ML 20 ML VIAL IV ONE (11:13)
[2022-03-09] MEDS ORDERED: ROCURONIUM 10 MG/ML (5 ML VIAL) IV ONE (11:13)
[2022-03-09] MEDS ORDERED: BUPIVACAIN-EPI 0.25%-1:200,000 30 ML VIAL SQ ONE ×2 (11:44)
[2022-03-09] MEDS ORDERED: LACTATED RINGERS 1,000 ML IV ONE ×2 (12:31)
[2022-03-09] MEDS ORDERED: HYOSCYAMINE ORAL DROPS 1.875 MG/15 ML BOTTLE PO PRN (13:32)
[2022-03-09] MEDS ORDERED: HYDROmorphone 0.5 MG/0.5 ML SYRINGE IVP PRN (13:32)
[2022-03-09] MEDS ORDERED: diphenhydrAMINE 50 MG/ML 1 ML VIAL IVP PRN (13:32)
[2022-03-09] MEDS ORDERED: HYDROmorphone 1 MG/ML 1 ML SYRINGE IVP PRN (13:32)
[2022-03-09] MEDS ORDERED: NALOXONE 0.4 MG/ML 1 ML VIAL IV PRN (13:32)
--- NOTE | 2022-03-09 13:38 | P.OP ---
Date of Procedure: 03/09/22 Procedure(s) Performed: PREOPERATIVE DIAGNOSIS: Morbid obesity, GERD, sleep apnea POSTOPERATIVE DIAGNOSIS: Same PROCEDURE: Da Austyn assisted laparoscopic sleeve gastrectomy SURGEON: Martha EBL: Minimal ANESTHESIA: General COMPLICATIONS: None OPERATIVE PROCEDURE: Patient was placed in the operating table in the supine position. The patient was then placed under general anesthesia at that time. The abdomen was prepped and draped in the usual sterile fashion. A 5 mm optical trocar was placed in the left upper quadrant 20 cm inferior to the xiphoid process. Insufflation took place up to 15 mmHg. No adhesions were seen. A 5 mm subxiphoid incision was made and the medium Yris retractor was used to elevate the left lobe of liver anteriorly. This was held in place using the fixed arm retractor. An additional 12 mm trocar was placed in the right paramedian location and 2 additional 8 mm trochars were placed in the left upper quadrant one medial and one lateral to the initially placed optical trocar. All of these trochars were placed along the same plane. The initial 5 was then switched to an 8 mm trocar. The robot was then docked appropriately. The 8 mm camera was placed in the left paramedian trocar site down viewing. A fenestrated bipolar was placed in arm 1, arm 3 had the vessel sealer, arm 4 had the small grasper retractor. The hiatus was inspected and there was no visible hiatal hernia. At that point I moved to the distal aspect of the greater curvature the stomach. The short gastric vasculature were divided using the vessel sealer. This dissection took place distally until we were 4 cm from the pylorus. The posterior adhesions were divided as well. The dissection then took place proximally along the stomach until the posterior short gastrics were divided and the fundus of the stomach was fully mobilized. Once the stomach was fully mobilized the blunt tipped 40-Kinyarwanda bougie dilator was advanced into the stomach and advanced all the way to the prepyloric location. The patient's stomach by palpation seemed to be of average thickness. No buttressing was utilized. The stapler was then used to divide the stomach staying on the outside edge of our dilator. 3 green loads of the stapler were utilized followed by 2 blue loads followed by a single white load. The stomach was then placed in the right upper quadrant after it was fully excised. The oral gastric tube was reinserted. The stomach was insufflated with approximately 100 mL of methylene blue. No evidence of leak or obstruction was seen. A few small areas of bleeding were seen along the staple line controlled using the bipolar cautery. No further bleeding was seen. Tisseel fibrin glue was then used along the length of the staple line. The robot was then undocked. The da Austyn laparoscope was used and the stomach was removed from the 12 mm trocar site without difficulty. The fascia at the 12mm site was closed using [id number] 0 Vicryl sutures with the laparoscopic suture passer and Avel Sivakumar technique. The insufflation was evacuated. The skin at all 5 incisions were closed using 4-0 Monocryl sutures. Skin glue was then applied. DISPOSITION: Stable to recovery room
[2022-03-09] MEDS ORDERED: ONDANSETRON 4 MG/2 ML VIAL IVP ONE (14:49)
[2022-03-09] MEDS: ALBUTEROL NEBULIZED 2.5 MG/3 ML INHALATION SCH ×2 (16:12→20:37)
[2022-03-09] MEDS ORDERED: ONDANSETRON 4 MG/2 ML VIAL ONE (17:10)
[2022-03-09] MEDS: ACETAMINOPHEN IV (For NPO) 1,000 MG in EMPTY BAG 1 BAG IVPB SCH (17:13)
[2022-03-09] MEDS: SIMETHICONE 40 MG/0.6 ML DROPS 2,000 MG/30 ML BOTTLE PO PRN (18:02)
[2022-03-09] MEDS: ONDANSETRON 4 MG/2 ML VIAL IVP PRN (21:58)
[2022-03-10] MEDS: METOCLOPRAMIDE 5 MG/ML 2 ML VIAL IVP SCH ×2 (02:59→07:06)
[2022-03-10] MEDS: SIMETHICONE 40 MG/0.6 ML DROPS 2,000 MG/30 ML BOTTLE PO PRN (03:03)
[2022-03-10] MEDS: 0.9% NACL WITH KCL 20 MEQ/L 1,000 ML IV SCH ×6 (05:39→23:18)
[2022-03-10] MEDS: ACETAMINOPHEN IV (For NPO) 1,000 MG in EMPTY BAG 1 BAG IVPB SCH ×3 (06:05→11:31)
[2022-03-10] MEDS ORDERED: METOCLOPRAMIDE 5 MG/ML 2 ML VIAL IVP PRN (06:09)
[2022-03-10] MEDS: ONDANSETRON 4 MG/2 ML VIAL IVP PRN (07:45)
[2022-03-10] MEDS: PANTOPRAZOLE 40 MG/10 ML VIAL IV SCH (07:45)
[2022-03-10] MEDS: ALBUTEROL NEBULIZED 2.5 MG/3 ML INHALATION SCH ×4 (07:45→20:22)
--- NOTE | 2022-03-10 09:39 | FL ---
EXAMINATION TYPE: FL UGI DATE OF EXAM: 03/10/2022 COMPARISON: NONE HISTORY: Post bariatric surgery TECHNIQUE: A single contrast UGI study is performed. A total of 42 seconds of fluoroscopic time was utilized during procedure and 6 images obtained. FINDINGS: Small Business Director image of the abdomen shows no gross abnormality. The esophagus shows normal motility and moderate delay at the level of GE junction. After a few minut es the majority con contrast passed into the stomach. No extravasation. Small amount of free air susp ected likely postsurgical.. IMPRESSION: Moderate delay at the level the GE junction.
[2022-03-10] MEDS: LACTATED RINGERS 1,000 ML IV SCH (10:09)
[2022-03-10] MEDS: ENOXAPARIN 40 MG/0.4 ML SYRINGE SQ SCH (11:05)
[2022-03-10 11:08] LABS: Basophils # (A) 0.02 X 10*3/uL (0.00-0.10); Basophils % (A) 0.1 %; Eosinophils # (A) 0 X 10*3/uL (0.04-0.35); Eosinophils % (A) 0 %; HCT 40.5 % (37.2-46.3); HGB 12.3 g/dL (12.0-15.0); Immature Grans, Automated 0.3 %; Lymphocytes # (A) 1.93 X 10*3/uL (0.90-5.00); MCH 25.4 pg (27.0-32.0); MCHC 30.4 g/dL (32.0-37.0); MCV 83.7 fL (80.0-97.0); Mean Platelet Volume 10.3 fL (9.5-12.2); Monocytes # (A) 1.01 X 10*3/uL (0.20-1.00); Monocytes % (A) 6.8 %; NRBC Per 100 WBC 0 /100 WBCS (0.0-0.0); Neutrophils # (A) 11.83 X 10*3/uL (1.80-7.70); Neutrophils % (A) 79.8 %; Platelet Count 257 X 10*3/uL (140-440); RBC 4.84 X 10*6/uL (4.10-5.20); RDW 13.3 % (11.5-14.5); WBC 14.84 X 10*3/uL (4.50-10.00)
[2022-03-10 11:17] VITALS: BMI 35.7
[2022-03-10 11:31] LABS: Magnesium 1.8 mg/dL (1.5-2.4)
[2022-03-10 11:33] LABS: African American GFR (CKD) 120.4 (60.0-200.0); Anion Gap 14.2 mmol/L (10.00-18.00); Blood Urea Nitrogen 6.4 mg/dL (9.0-27.0); Calcium 8.5 mg/dL (8.7-10.3); Carbon Dioxide 17.8 mmol/L (20.0-27.5); Non-African American GFR(CKD) 103.9 (60.0-200.0); Phosphorus 1.8 mg/dL (2.4-5.1); Potassium 4.4 mmol/L (3.5-5.5)
[2022-03-10] MEDS ORDERED: LEVOTHYROXINE 25 MCG TAB PO SCH (12:45)
[2022-03-10] MEDS: LEVOTHYROXINE 25 MCG TAB PO SCH (14:34)
--- NOTE | 2022-03-10 14:57 | P.PN ---
Subjective Progress Note Date: 03/10/22 Principal diagnosis: Morbid obesity The patient was nauseated last night. Pain has been well-controlled. Doing better this morning. Upper GI showed moderate delay at the proximal sleeve. No evidence of leak noted. No tachycardia. She is afebrile. White blood cell count elevated. Hemoglobin stable. Objective - Vital Signs Vital signs: Vital Signs Temp 98.0 F 03/10/22 08:00 Pulse 81 03/10/22 08:00 Resp 16 03/10/22 08:00 BP 121/77 03/10/22 08:00 Pulse Ox 94 L 03/10/22 08:00 FiO2 Intake & Output 03/09/22 03/10/22 03/10/22 18:59 06:59 18:59 Intake Total 1750 Output Total 10 700 Balance 1740 -700 Weight 103.6 kg 103.6 kg Intake: IV 1750 Output: Urine 700 Estimated Blood Loss 10 Other: Voiding Method Toilet Toilet # Voids 0 - Exam Abdomen: Soft, nondistended, mild incisional tenderness increased in the right side, no ecchymosis, incisions clean and dry - Labs CBC & Chem 7: 03/10/22 06:44 03/10/22 06:44 Labs: Abnormal Lab Results - Last 24 Hours (Table) 03/10/22 03/10/22 Range/Units 06:44 06:44 WBC 14.84 H (4.50-10.00) X 10*3/uL MCH 25.4 L (27.0-32.0) pg MCHC 30.4 L (32.0-37.0) g/dL Immature Gran # 0.05 H (0.00-0.04) X 10*3/uL Neutrophils # 11.83 H (1.80-7.70) X 10*3/uL Monocytes # 1.01 H (0.20-1.00) X 10*3/uL Eosinophils # 0 L (0.04-0.35) X 10*3/uL Carbon Dioxide 17.8 L (20.0-27.5) mmol/L BUN 6.4 L (9.0-27.0) mg/dL Calcium 8.5 L (8.7-10.3) mg/dL Phosphorus 1.8 L (2.4-5.1) mg/dL Assessment and Plan (1) Obesity (BMI 30.0-34.9) Narrative/Plan: Overall patient doing fairly well. Continue antiacids and anti-emetics. Begin bariatric clear liquids. Recheck labs tomorrow. Ambulate. Possible discharge tomorrow. Current Visit: No Status: Acute Code(s): E66.9 - OBESITY, UNSPECIFIED SNOMED Code(s): 235022432922358
[2022-03-10] MEDS: KETOROLAC 15 MG/ML 1 ML VIAL IVP SCH ×2 (15:07→20:21)
--- NOTE | 2022-03-10 18:07 | CONS ---
CONSULTATION DATE OF SERVICE: 03/10/2022 REASON FOR CONSULTATION: Advice regarding hypothyroidism and other multiple medical issues, requested by Surgery. HISTORY OF PRESENT ILLNESS: This 46-year-old woman with a past medical history of thyroid disorder and cholecystectomy, being followed by Dr. Burns in the outpatient setting, underwent laparoscopic sleeve gastrectomy by Dr. Thomas. The patient tolerated the procedure well. There is no history of any fever, rigors or chills. No history of headache, loss of consciousness, seizures. PAST MEDICAL HISTORY: Hypothyroidism, cholecystectomy. HOME MEDICATIONS: Reviewed. They include multivitamin. ALLERGIES: NONE. FAMILY HISTORY: No history of heart disease. SOCIAL HISTORY: No history of smoking or alcohol. REVIEW OF SYSTEMS: Fourteen-point review of systems negative except as mentioned earlier. PHYSICAL EXAMINATION: Pulse 81, blood pressure 120/70, respirations 16. HEENT: Conjunctivae normal. NECK: No jugular venous distention. CARDIOVASCULAR: S1, S2 muffled. RESPIRATION: Clear to auscultation. ABDOMEN: Soft. Status post surgery. LEGS: No edema. No swelling. NERVOUS SYSTEM: Higher functions as mentioned earlier. Moves all 4 limbs. No focal motor or sensory deficit. LYMPHATICS: No lymph node palpable in neck, axillae or groin. SKIN: No ulcer, rash, bleeding. JOINTS: No active deforming arthropathy. LABS: WBC 14.8. Other labs are reviewed. ASSESSMENT: 1. Status post sleeve gastrectomy. 2. Cholecystectomy. 3. History of tonsillectomy. 4. Hypothyroidism. RECOMMENDATIONS AND DISCUSSION: I recommend to continue current medications, continue with the monitoring, symptomatic treatment. Resume the home medications. Recommend close followup with primary physician. DVT prophylaxis. Incentive spirometry. Will follow the patient closely with you. Thank you, Dr. Thomas. MMODL / IJN: [id number] /
[2022-03-11] MEDS: KETOROLAC 15 MG/ML 1 ML VIAL IVP SCH ×3 (02:38→15:21)
[2022-03-11] MEDS: LEVOTHYROXINE 25 MCG TAB PO SCH (05:41)
[2022-03-11] MEDS: ENOXAPARIN 40 MG/0.4 ML SYRINGE SQ SCH (07:04)
[2022-03-11] MEDS: ALBUTEROL NEBULIZED 2.5 MG/3 ML INHALATION SCH ×3 (07:14→15:19)
[2022-03-11] MEDS: PANTOPRAZOLE 40 MG/10 ML VIAL IV SCH (07:57)
[2022-03-11] MEDS: SIMETHICONE 40 MG/0.6 ML DROPS 2,000 MG/30 ML BOTTLE PO PRN (07:58)
[2022-03-11] MEDS ORDERED: bisacodyL 5 MG TABLET.DR PO PRN (08:00)
[2022-03-11 09:32] LABS: Basophils # (A) 0.03 X 10*3/uL (0.00-0.10); Basophils % (A) 0.3 %; Eosinophils # (A) 0.08 X 10*3/uL (0.04-0.35); Eosinophils % (A) 0.9 %; HCT 38.6 % (37.2-46.3); HGB 11.9 g/dL (12.0-15.0); Immature Grans, Automated 0.3 %; Lymphocytes # (A) 2.48 X 10*3/uL (0.90-5.00); Lymphocytes % (A) 28.1 %; MCH 25.9 pg (27.0-32.0); MCHC 30.8 g/dL (32.0-37.0); MCV 83.9 fL (80.0-97.0); Mean Platelet Volume 10.3 fL (9.5-12.2); Monocytes # (A) 0.55 X 10*3/uL (0.20-1.00); Monocytes % (A) 6.2 %; NRBC Per 100 WBC 0 /100 WBCS (0.0-0.0); Neutrophils # (A) 5.66 X 10*3/uL (1.80-7.70); Neutrophils % (A) 64.2 %; Platelet Count 227 X 10*3/uL (140-440); RDW 13.6 % (11.5-14.5); WBC 8.83 X 10*3/uL (4.50-10.00)
--- NOTE | 2022-03-11 11:47 | P.PN ---
Subjective This is a pleasant 46 years old female with obesity who was admitted for sleeve gastrectomy done by surgery team. Today is postoperative day #1. She is doing well and she denies any specific symptoms. He was seen in walking her room with no difficulty. She says she is tolerating her liquid bariatric diet. No significant abdominal pain or vomiting. Patient states that she had regular bowel movement this morning. The WBC is back to normal at 8.8 today. IV fluids were stopped. She remains on IV Protonix, IV Toradol and Dulcolax when necessary as well as Lovenox for DVT prophylaxis. Objective - Vital Signs Vital signs: Vital Signs Temp 98.4 F 03/11/22 08:00 Pulse 70 03/11/22 08:00 Resp 16 03/11/22 08:00 BP 130/72 03/11/22 08:00 Pulse Ox 95 03/11/22 08:00 FiO2 Intake & Output 03/10/22 03/11/22 03/11/22 18:59 06:59 18:59 Intake Total 240 Output Total 300 Balance -60 Weight 103.6 kg Intake: Oral 240 Output: Urine 300 Other: Voiding Method Toilet Toilet # Voids 1 - Exam GENERAL: The patient is alert and oriented x3, not in any acute distress. Well developed, well nourished. HEENT: Pupils are round and equally reacting to light. EOMI. No scleral icterus. No conjunctival pallor. Normocephalic, atraumatic. No pharyngeal erythema. No thyromegaly. CARDIOVASCULAR: S1 and S2 present. No murmurs, rubs, or gallops. PULMONARY: Chest is clear to auscultation, no wheezing or crackles. -ABDOMEN: Soft, nontender, nondistended, normoactive bowel sounds. No palpable organomegaly. Bariatric surgical wound are closed with dressing in place, rest of exam is deferred to surgery primary team- MUSCULOSKELETAL: No joint swelling or deformity. EXTREMITIES: No cyanosis, clubbing, or pedal edema. NEUROLOGICAL: Gross neurological examination did not reveal any focal deficits. SKIN: No rashes. no petechiae. - Labs CBC & Chem 7: 03/11/22 06:32 03/10/22 06:44 Labs: Abnormal Lab Results - Last 24 Hours (Table) 03/10/22 03/10/22 03/11/22 Range/Units 06:44 06:44 06:32 WBC 14.84 H (4.50-10.00) X 10*3/uL Hgb 11.9 L (12.0-15.0) g/dL MCH 25.4 L 25.9 L (27.0-32.0) pg MCHC 30.4 L 30.8 L (32.0-37.0) g/dL Immature Gran # 0.05 H (0.00-0.04) X 10*3/uL Neutrophils # 11.83 H (1.80-7.70) X 10*3/uL Monocytes # 1.01 H (0.20-1.00) X 10*3/uL Eosinophils # 0 L (0.04-0.35) X 10*3/uL Carbon Dioxide 17.8 L (20.0-27.5) mmol/L BUN 6.4 L (9.0-27.0) mg/dL Calcium 8.5 L (8.7-10.3) mg/dL Phosphorus 1.8 L (2.4-5.1) mg/dL Assessment and Plan Assessment: Obesity status post gastric sleeve gastrectomy surgery. Postop leukocytosis, resolved. Constipation resolved Plan: This is a pleasant 46 years old female status post sleeve gastrectomy Continue with liquid diet per surgery team Pain management Labs and medication were reviewed.. Continue same treatment. Continue with symptomatic treatment. Resume home medication. Monitor lytes and vitals. DVT and GI prophylaxis. Further recommendationsas per clinical course of the patient DVT prophylaxis: Subcutaneous Lovenox GI Prophylaxis: Ppi Thank you for consulting us
--- NOTE | 2022-03-11 11:48 | P.DS ---
Providers Date of admission: 03/09/22 10:02 Expected date of discharge: 03/11/22 Attending physician: Rishabh Thomas Consults: 03/09/22 13:32 Consult Physician Routine Consulting Provider: Jazz Jama Consult Reason/Comments: Medical management Do you want consulting provider notified?: Yes Primary care physician: Grant Jangbal - Discharge Diagnosis(es) (1) Obesity (BMI 30.0-34.9) Patient doing well today. She was admitted for elective sleeve gastrectomy 2 days ago. At some mild nausea initially. Patient had upper GI showing mild obstruction. Tolerating liquids well at this time however. Pain is minimal. Incisions are clean and dry. Will plan discharge today. Follow-up nurse visit on Wednesday and follow up with me next Wednesday. Current Visit: No Status: Acute Plan - Discharge Summary Discharge Rx Participant: Yes New Discharge Prescriptions: No Action Levothyroxine Sodium [Synthroid] 25 mcg PO DAILY Multivit with Calcium,Iron,Min [Women's Multivitamin] 1 each PO DAILY Iron 18 mg PO DAILY Cholecalciferol [Vitamin D3 (125 Mcg = 5000 Iu)] 125 mcg PO DAILY Discharge Medication List Levothyroxine Sodium [Synthroid] 25 mcg PO DAILY 11/18/19 [History] Cholecalciferol [Vitamin D3 (125 Mcg = 5000 Iu)] 125 mcg PO DAILY 10/30/21 [History] Multivit with Calcium,Iron,Min [Women's Multivitamin] 1 each PO DAILY 10/30/21 [History] Iron 18 mg PO DAILY 02/11/22 [History] [facility]Ref[place] [facility] [place]13/22 10:00 am
[2022-03-11 14:48] VITALS: BP 135/79; PULSE 71; RESP 18; TEMP 98.6
[2022-03-11] MEDS: 0.9% NACL WITH KCL 20 MEQ/L 1,000 ML IV SCH (15:25)
[2022-03-11] MEDS: LACTATED RINGERS 1,000 ML IV SCH (15:25)
== END 2022-03-11 16:19 | disposition home or self-care (01) | DRG 621 ==
LOC: 2ORMAIN 10:02 → 4SSUR 14:25
PROVIDERS: ADMIT Surgery; ATTEND Surgery
PROC: 8E0W4CZ Robotic Assisted Procedure of Trunk Region, Percutaneous Endoscopic Approach (ICD-10-PCS; principal; 2022-03-09 11:15)
PROC: 0DB64Z3 Excision of Stomach, Percutaneous Endoscopic Approach, Vertical (ICD-10-PCS; principal; 2022-03-09 11:15)
DX: E66.01 Morbid (severe) obesity due to excess calories (principal); D72.829 Elevated white blood cell count, unspecified; Z68.35 Body mass index [BMI] 35.0-35.9, adult; E03.9 Hypothyroidism, unspecified; K21.9 Gastro-esophageal reflux disease without esophagitis; G47.30 Sleep apnea, unspecified; K29.70 Gastritis, unspecified, without bleeding; K59.00 Constipation, unspecified; G89.29 Other chronic pain; M25.569 Pain in unspecified knee; Z79.890 Hormone replacement therapy; Z79.899 Other long term (current) drug therapy; Z90.49 Acquired absence of other specified parts of digestive tract; Z87.19 Personal history of other diseases of the digestive system; Z86.69 Personal history of other diseases of the nervous system and sense organs; Z71.3 Dietary counseling and surveillance
CPT/HCPCS: 74240; 80051; 81025; 82310; 82565; 83735; 84100; 84520; 85025; 86850; 86900; 86901; 88307; 88342; 94760

== ENCOUNTER → 2022-03-13 | Outpatient (CLI) | payer OTHER ==
[2022-03-13 10:45] VITALS: BP 125/72; PULSE 87; TEMP 98.3; BMI 34.5
== END ==
LOC: BARWHC3 10:08
PROVIDERS: ATTEND Surgery
DX: Z09 Encounter for follow-up examination after completed treatment for conditions other than malignant neoplasm (principal); Z98.84 Bariatric surgery status
CPT/HCPCS: 99211

== ENCOUNTER → 2022-03-17 | Outpatient (CLI) | payer OTHER ==
[2022-03-17 13:32] VITALS: BP 124/70; PULSE 80; RESP 16; TEMP 98.2; BMI 34.2
--- NOTE | 2022-03-17 14:13 | P.BASOAP ---
Subjective Progress Note Date: 03/17/22 Principal diagnosis: Morbid obesity Patient returns after sleeve gastrectomy 1 week ago. Doing well at this time. Minimal pain. No nausea or vomiting. No heartburn. 60 ounces of liquids or more daily. Over 60 g of protein daily. Heart rate today is 80. She is afebrile. Objective - Vital Signs Vital signs: Vital Signs Temp 98.2 F 03/17/22 13:30 Pulse 80 03/17/22 13:30 Resp 16 03/17/22 13:30 BP 124/70 03/17/22 13:30 Pulse Ox FiO2 Intake & Output 03/16/22 03/17/22 03/17/22 18:59 06:59 18:59 Weight 100.698 kg - Exam Abdomen: Soft, nondistended, incisions clean and dry, minimal tenderness at the extraction site Assessment/Plan (1) Obesity (BMI 30.0-34.9) Narrative/Plan: 46-year-old female doing well after recent sleeve gastrectomy. Continue postoperative diet. Gradually resume normal activities. Repeat clinical exam 2-3 weeks. We'll check one month labs at that time. Plan: Date: 03/17/22 Initial Weight: 104.326 kg Initial BMI: 35.4 Current Weight: 100.698 kg Current BMI: 34.2 Type of Surgery: Vertical Sleeve Gastrectomy Total Volume in Band: Previous Volume: Volume Removed: Volume Added: Band Size:
== END ==
LOC: BARWHC3 13:10
PROVIDERS: ATTEND Surgery
DX: E66.01 Morbid (severe) obesity due to excess calories (principal); Z68.34 Body mass index [BMI] 34.0-34.9, adult; Z98.84 Bariatric surgery status; Z71.3 Dietary counseling and surveillance
CPT/HCPCS: 97802; 99211

== ENCOUNTER → 2022-04-24 | Outpatient (CLI) | payer OTHER ==
[2022-04-24 18:20] LABS: HCT 45.5 % (37.2-46.3); MCH 25.9 pg (27.0-32.0); MCHC 30.8 g/dL (32.0-37.0); MCV 84.1 fL (80.0-97.0); Mean Platelet Volume 10.7 fL (9.5-12.2); NRBC Per 100 WBC 0 /100 WBCS (0.0-0.0); Platelet Count 229 X 10*3/uL (140-440); RBC 5.41 X 10*6/uL (4.10-5.20); RDW 13.9 % (11.5-14.5); WBC 6.01 X 10*3/uL (4.50-10.00)
[2022-04-24 18:38] LABS: African American GFR (CKD) 102.5 (60.0-200.0); Albumin 4.5 g/dL (3.8-4.9); Albumin/Globulin Ratio 1.8 (1.60-3.17); Anion Gap 11.9 mmol/L (10.00-18.00); BUN/Creat Ratio 21.13 Ratio (12.00-20.00); Blood Urea Nitrogen 16.9 mg/dL (9.0-27.0); Calcium 9.6 mg/dL (8.7-10.3); Carbon Dioxide 21.1 mmol/L (20.0-27.5); Globulin 2.5 g/dL (1.6-3.3); Non-African American GFR(CKD) 88.4 (60.0-200.0); Potassium 4.2 mmol/L (3.5-5.5); Total Bilirubin 0.5 mg/dL (0.30-1.20)
== END | disposition home or self-care (01) ==
LOC: LABWHC1 12:21
PROVIDERS: ATTEND Surgery
DX: E66.01 Morbid (severe) obesity due to excess calories (principal); K90.89 Other intestinal malabsorption; E55.9 Vitamin D deficiency, unspecified
CPT/HCPCS: 36415; 80053; 82306; 82607; 82746; 83540; 84425; 85027

== ENCOUNTER → 2022-05-12 | Outpatient (CLI) | payer OTHER ==
[2022-05-12 13:34] VITALS: BP 126/83; PULSE 69; RESP 16; TEMP 98.4; BMI 31.4
--- NOTE | 2022-05-12 13:53 | P.BASOAP ---
Subjective Progress Note Date: 05/12/22 Principal diagnosis: Morbid obesity Patient doing well today. Last seen 04/07. She has lost 12 pounds. Doing well. Says she forgets to eat and drink. She is getting 64 ounces of liquids daily. She is exercising at her [employer]. Recent labs showed a slightly low iron at 34. It was 36 and September. Objective - Vital Signs Vital signs: Vital Signs Temp 98.4 F 05/12/22 13:32 Pulse 69 05/12/22 13:32 Resp 16 05/12/22 13:32 BP 126/83 05/12/22 13:32 Pulse Ox FiO2 Intake & Output 05/11/22 05/12/22 05/12/22 18:59 06:59 18:59 Weight 92.533 kg - Exam Abdomen: Soft, nontender, nondistended Assessment/Plan (1) Obesity (BMI 30.0-34.9) Narrative/Plan: Patient doing well at this time. Continue dietary and exercise regimen. Continue daily antiacids. Return visit in 6 weeks. We'll check 3 months labs at that time. Plan: Date: 05/12/22 Initial Weight: 104.326 kg Initial BMI: 35.4 Current Weight: 92.533 kg Current BMI: 31.4 Type of Surgery: Vertical Sleeve Gastrectomy Total Volume in Band: Previous Volume: Volume Removed: Volume Added: Band Size:
== END ==
LOC: BARWHC3 13:27
PROVIDERS: ATTEND Surgery
DX: Z98.84 Bariatric surgery status (principal); E66.01 Morbid (severe) obesity due to excess calories; Z68.34 Body mass index [BMI] 34.0-34.9, adult
CPT/HCPCS: 99211